=== PATIENT | male | born 1990 | race Caucasian/White ===

== ENCOUNTER 2021-04-05 11:13 | Emergency (ER) | payer MEDICAID ==
--- NOTE | 2021-04-05 12:08 | EDM.PDOC ---
ED HPI GENERAL MEDICAL PROBLEM - General Stated Complaint: FEVER BODY ACHES Time Seen by Provider: 04/05/21 11:45 Source of Information: Reports: Patient History Limitations: Reports: No Limitations - History of Present Illness INITIAL COMMENTS - FREE TEXT/NARRATIVE: recurrent body aches and fever , nasal congestion X 3 days, fever has gone today, pt tolerating PO fluids and food very well and feels fine otherwise, denies any other associated sx, his faience is here w similar sx. - Related Data Allergies Allergy/AdvReac Type Severity Reaction Status Date / Time No Known Allergies Allergy Verified 04/05/21 11:44 ED ROS GENERAL - Review of Systems Review Of Systems: See Below Constitutional: Reports: Fever, Chills. Denies: Fatigue HEENT: Reports: Rhinitis. Denies: Ear Pain, Nose Pain, Sinus Problem, Throat Pain Respiratory: Reports: No Symptoms Cardiovascular: Reports: No Symptoms GI/Abdominal: Reports: No Symptoms Musculoskeletal: Reports: Joint Pain Skin: Reports: No Symptoms Neurological: Reports: No Symptoms ED EXAM, GENERAL - Physical Exam Exam: See Below Exam Limited By: No Limitations General Appearance: Alert, No Apparent Distress Ears: Normal External Exam, Normal Canal, Normal TMs Ear Exam: Bilateral Ear: TM normal Nose: Normal Inspection, Normal Mucosa Throat/Mouth: Normal Inspection, Normal Oropharynx Head: Atraumatic, Normocephalic Neck: Normal Inspection, Supple, Non-Tender, Full Range of Motion Respiratory/Chest: No Respiratory Distress, Lungs Clear, Normal Breath Sounds Cardiovascular: Normal Peripheral Pulses, Regular Rate, Rhythm GI/Abdominal: Normal Bowel Sounds, Soft, Non-Tender (Male) Exam: Normal Inspection Back Exam: Normal Inspection, Full Range of Motion Extremities: Normal Inspection, Normal Range of Motion Neurological: Alert, Oriented Course - Vital Signs Text/Narrative:: this is sounding viral and pt is already showing signs of improvments, he was tested for covid when this was started and it was neg. supportive mng was recommended. Last Recorded V/S: Last Vital Signs Temp 37.0 C 04/05/21 11:13 Pulse 88 04/05/21 11:13 Resp 18 04/05/21 11:13 BP 125/71 04/05/21 11:13 Pulse Ox 97 04/05/21 11:13 Departure - Departure Time of Disposition: 12:08 Disposition: Home, Self-Care 01 Clinical Impression: Viral illness - Discharge Information Referrals: PCP,None [Primary Care Provider] - Sepsis Event Note (ED) - Focused Exam Vital Signs: Vital Signs Temp Pulse Resp BP Pulse Ox 04/05/21 11:13 37.0 C 88 18 125/71 97
== END 2021-04-05 13:10 | disposition home or self-care (01) ==
LOC: FB.ED 11:13
DX: B34.9 Viral infection, unspecified (principal)
CPT/HCPCS: 99283

== ENCOUNTER 2022-10-07 03:11 | Emergency (ER) | payer MEDICAID ==
[2022-10-07] MEDS ORDERED: Amoxicillin/Clavulanate K 875-125 MG Tab PO ONE (04:02)
== END 2022-10-07 04:21 | disposition home or self-care (01) ==
LOC: FB.ED 03:11
DX: J02.0 Streptococcal pharyngitis (principal); Z72.0 Tobacco use
CPT/HCPCS: 87651-QW; 99283; A9270-GY

== ENCOUNTER 2023-01-20 13:02 | Emergency (ER) | payer MEDICAID ==
[2023-01-20] MEDS ORDERED: Aspirin 81 MG Tab.Chew PO ONE (13:42)
[2023-01-20 14:05] LABS: BASOPHILS ABSOLUTE AUTO 0.1 x10-3/uL (0.0-0.3); BASOPHILS PERCENT AUTO 0.7 % (0.3-3.8); EOSINOPHILS ABSOLUTE AUTO 0.2 x10-3/uL (0.0-0.6); EOSINOPHILS PERCENT AUTO 1.9 % (0.1-6.8); HEMATOCRIT 44.4 % (38.3-50.1); HEMOGLOBIN 15.7 g/dL (12.9-17.7); LYMPHOCYTES ABSOLUTE AUTO 3.2 x10-3/uL (0.5-4.5); LYMPHOCYTES PERCENT AUTO 36.9 % (15.8-45.3); MEAN CORPUSCULAR HEMOGLOBIN 30.8 pg (27.0-33.3); MEAN CORPUSCULAR HGB CONC 35.4 g/dL (28.7-35.3); MEAN CORPUSCULAR VOLUME 86.9 fL (80.8-98.7); MEAN PLATELET VOLUME 8.1 fL (6.7-11.0); MONOCYTES ABSOLUTE AUTO 0.8 x10-3/uL (0.0-1.2); MONOCYTES PERCENT AUTO 9.3 % (5.5-15.2); NEUTROPHILS ABSOLUTE AUTO 4.5 x10-3/uL (1.7-6.9); NEUTROPHILS PERCENT AUTO 51.2 % (40.3-71.8); PLATELET COUNT,PLT 308 x10(3)uL (117-477); RED BLOOD CELL COUNT 5.11 x10(6)uL (3.90-5.90); RED CELL DISTRIBUTION WIDTH 13.4 % (12.4-15.0); WHITE BLOOD CELL COUNT,WBC 8.7 x10-3/uL (3.2-10.1)
[2023-01-20 14:08] LABS: BLOOD UREA NITROGEN,BUN 14 mg/dL (7-18); BUN/CREATININE RATIO 10.8 (9-20); CALCIUM 8.7 mg/dL (8.6-10.2); CARBON DIOXIDE,CO2 26 mmol/L (21-32); CHLORIDE,CL 102 mmol/L (100-110); CREATININE 1.3 mg/dL (0.70-1.30); ESTIMATED GFR 74 mL/min (>60); SODIUM,NA 137 mmol/L (135-145)
[2023-01-20 14:14] LABS: A/G RATIO 1.2; ALBUMIN 4.1 g/dL (3.5-5.2); ALKALINE PHOSPHATASE 101 IU/L (56-112); BILIRUBIN TOTAL 0.4 mg/dL (0.1-1.3); MAGNESIUM 1.9 mg/dL (1.8-2.5); PROTEIN TOTAL,TP 7.6 g/dL (6.0-8.0)
[2023-01-20 14:25] LABS: GLUCOSE RANDOM 124 mg/dL (80-116); POTASSIUM,K 4.6 mmol/L (3.5-5.3)
[2023-01-20 14:35] LABS: AMPHETAMINES SCREEN, URINE NEGATIVE (NEGATIVE); BARBITURATE SCREEN,URINE NEGATIVE (NEGATIVE); BENZODIAZEPINES SCREEN,URINE NEGATIVE (NEGATIVE); METHADONE SCREEN, URINE NEGATIVE (NEGATIVE); METHAMPHETAMINE SCREEN, URINE NEGATIVE (NEGATIVE); OXYCODONE SCREEN,URINE NEGATIVE (NEGATIVE); PROPOXYPHENE SCREEN,URINE NEGATIVE (NEGATIVE); THC SCREEN,URINE NEGATIVE (NEGATIVE)
[2023-01-20 14:36] LABS: BUPRENORPHINE SCREEN,URINE NEGATIVE (NEGATIVE)
[2023-01-20 15:26] LABS: ALANINE AMINOTRANSFERASE,ALT 99 U/L (12-36); ASPARTATE AMNIOTRANSFERASE,AST 36 IU/L (5-25)
== END 2023-01-20 17:14 | disposition home or self-care (01) ==
LOC: FB.ED 13:02
DX: R07.89 Other chest pain (principal); J45.909 Unspecified asthma, uncomplicated; F17.200 Nicotine dependence, unspecified, uncomplicated; Z86.16 Personal history of COVID-19
CPT/HCPCS: 36415; 71046; 80053; 80307; 83735; 84484; 85025; 85379; 93005; 93010; 99283; 99285; A9270-GY

== ENCOUNTER 2023-05-13 13:49 | Emergency (ER) | payer MEDICAID | END 2023-05-13 15:02 | disposition home or self-care (01) | LOC: FB.ED 13:49 | DX: S71.112A Laceration without foreign body, left thigh, initial encounter (principal); F17.210 Nicotine dependence, cigarettes, uncomplicated; Z86.16 Personal history of COVID-19; W31.2XXA Contact with powered woodworking and forming machines, initial encounter | CPT/HCPCS: 12002; 73560-LT; 99283 ==

== ENCOUNTER 2023-12-02 04:10 | Emergency (ER) | payer SELFPAY ==
[2023-12-02] MEDS: Sodium Chloride 0.9% 10 ML Syringe FLUSH PRN (04:30)
[2023-12-02] MEDS: Sodium Chloride 0.9% 1,000 ML IV SCH (04:37)
[2023-12-02] MEDS: Ketorolac 30 MG/ML SDV IVPUSH ONE (04:37)
[2023-12-02] MEDS: Acetaminophen 500 MG Tab PO ONE (04:37)
[2023-12-02 04:47] LABS: BASOPHILS ABSOLUTE AUTO 0.1 x10-3/uL (0.0-0.3); BASOPHILS PERCENT AUTO 0.5 % (0.3-3.8); EOSINOPHILS ABSOLUTE AUTO 0.1 x10-3/uL (0.0-0.6); EOSINOPHILS PERCENT AUTO 0.7 % (0.1-6.8); HEMATOCRIT 45.8 % (38.3-50.1); HEMOGLOBIN 15.7 g/dL (12.9-17.7); LYMPHOCYTES ABSOLUTE AUTO 2.4 x10-3/uL (0.5-4.5); LYMPHOCYTES PERCENT AUTO 17.2 % (15.8-45.3); MEAN CORPUSCULAR HEMOGLOBIN 30.1 pg (27.0-33.3); MEAN CORPUSCULAR HGB CONC 34.3 g/dL (28.7-35.3); MEAN CORPUSCULAR VOLUME 87.8 fL (80.8-98.7); MEAN PLATELET VOLUME 8.1 fL (6.7-11.0); MONOCYTES ABSOLUTE AUTO 1.1 x10-3/uL (0.0-1.2); MONOCYTES PERCENT AUTO 7.5 % (5.5-15.2); NEUTROPHILS ABSOLUTE AUTO 10.5 x10-3/uL (1.7-6.9); NEUTROPHILS PERCENT AUTO 74.1 % (40.3-71.8); PLATELET COUNT,PLT 302 x10(3)uL (117-477); RED BLOOD CELL COUNT 5.22 x10(6)uL (3.90-5.90); RED CELL DISTRIBUTION WIDTH 13.8 % (12.4-15.0); WHITE BLOOD CELL COUNT,WBC 14.1 x10-3/uL (3.2-10.1)
[2023-12-02 04:50] LABS: BLOOD UREA NITROGEN,BUN 18 mg/dL (7-18); BUN/CREATININE RATIO 12.9 (9-20); CALCIUM 9.1 mg/dL (8.6-10.2); CARBON DIOXIDE,CO2 28 mmol/L (21-32); CHLORIDE,CL 100 mmol/L (100-110); CREATININE 1.4 mg/dL (0.70-1.30); EST CRCL DRUG DOSING (CG) 66.46 mL/min; ESTIMATED GFR 67 mL/min (>60); GLUCOSE RANDOM 109 mg/dL (80-116); POTASSIUM,K 3.8 mmol/L (3.5-5.3); SODIUM,NA 138 mmol/L (135-145)
== END 2023-12-02 05:45 | disposition home or self-care (01) ==
LOC: FB.ED 04:10
DX: A08.4 Viral intestinal infection, unspecified (principal); J06.9 Acute upper respiratory infection, unspecified; E86.0 Dehydration; J45.909 Unspecified asthma, uncomplicated; Z86.16 Personal history of COVID-19
CPT/HCPCS: 80048; 85025; 96361; 96374; 99284; A9270; J1885; J3490; J7030

== ENCOUNTER 2024-03-05 15:41 | Emergency (ER) | payer OTHER ==
[2024-03-05] MEDS: Cyclobenzaprine 10 MG Tab PO ONE (16:18)
[2024-03-05] MEDS: methylPREDNISolone Sodium Succinate 125 MG/2 ML SDV IM ONE (16:18)
== END 2024-03-05 16:40 | disposition home or self-care (01) ==
LOC: FB.ED 15:41
DX: M54.41 Lumbago with sciatica, right side (principal); Z86.16 Personal history of COVID-19
CPT/HCPCS: 96372; 99283; A9270; J2919

== ENCOUNTER 2025-04-10 21:27 | Emergency (ER) | payer OTHER ==
[2025-04-10 22:01] LABS: BASOPHILS ABSOLUTE AUTO 0.1 x10-3/uL (0.0-0.3); BASOPHILS PERCENT AUTO 0.8 % (0.3-3.8); EOSINOPHILS ABSOLUTE AUTO 0.2 x10-3/uL (0.0-0.6); EOSINOPHILS PERCENT AUTO 1.9 % (0.1-6.8); LYMPHOCYTES ABSOLUTE AUTO 3.0 x10-3/uL (0.5-4.5); LYMPHOCYTES PERCENT AUTO 34.0 % (15.8-45.3); MEAN PLATELET VOLUME 8.2 fL (6.7-11.0); MONOCYTES ABSOLUTE AUTO 0.6 x10-3/uL (0.0-1.2); MONOCYTES PERCENT AUTO 6.9 % (5.5-15.2); NEUTROPHILS ABSOLUTE AUTO 4.9 x10-3/uL (1.7-6.9); NEUTROPHILS PERCENT AUTO 56.4 % (40.3-71.8); PLATELET COUNT,PLT 309 x10(3)uL (117-477); RED BLOOD CELL COUNT 5.09 x10(6)uL (3.90-5.90); RED CELL DISTRIBUTION WIDTH 13.5 % (12.4-15.0); WHITE BLOOD CELL COUNT,WBC 8.7 x10-3/uL (3.2-10.1)
[2025-04-10 22:06] LABS: BLOOD UREA NITROGEN,BUN 15 mg/dL (7-18); CARBON DIOXIDE,CO2 30 mmol/L (21-32); CHLORIDE,CL 104 mmol/L (100-110); CREATININE 1.3 mg/dL (0.70-1.30); ESTIMATED GFR 73 mL/min (>60); GLUCOSE RANDOM 91 mg/dL (80-116); POTASSIUM,K 4.0 mmol/L (3.5-5.3); SODIUM,NA 142 mmol/L (135-145)
[2025-04-10 22:12] LABS: A/G RATIO 1.1; ALANINE AMINOTRANSFERASE,ALT 46 U/L (12-36); ASPARTATE AMNIOTRANSFERASE,AST 22 IU/L (5-25); BILIRUBIN TOTAL 0.5 mg/dL (0.1-1.3); PROTEIN TOTAL,TP 7.6 g/dL (6.0-8.0)
== END 2025-04-10 23:08 | disposition home or self-care (01) ==
LOC: FB.ED 21:27
DX: H81.10 Benign paroxysmal vertigo, unspecified ear (principal); Z79.899 Other long term (current) drug therapy; Z86.16 Personal history of COVID-19
CPT/HCPCS: 36415; 80053; 84484; 85025; 93005; 99284; A9270; 93010; 99283